=== PATIENT | female | born 1975 | race Caucasian/White ===

== ENCOUNTER 2017-05-30 14:05 | Emergency (ER) | payer BC ==
[~2017-05-30] VITALS: Ht 157.5 cm; Wt 63.6 kg
[2017-05-30 14:05] VITALS: Ht 157.5 cm; Wt 63.6 kg
[~2017-05-30 14:05] MED LIST: METO25TA54 PO
[2017-05-30 14:26] LABS: URINE BLOOD (Dip) POC 2+ (NEGATIVE)
[2017-05-30] MEDS ORDERED: ONDANSETRON (ODT) 4 MG TAB ODT STA (14:34)
[2017-05-30 14:47] LABS: BASOPHILS % 0.6 % (0.0-2.0); EOSINOPHILS # 0.1 10^3/ul (0.0-0.5); EOSINOPHILS % 1.1 % (0.0-7.0); HEMATOCRIT 34.1 % (37.0-47.0); HEMOGLOBIN 11.1 g/dl (12.0-16.0); LYMPHOCYTES # 1.3 10^3/ul (0.8-2.9); LYMPHOCYTES % 25.2 % (15.0-51.0); MEAN CORPUSCULAR HEMOGLOBIN 27.1 pg (29.0-33.0); MEAN CORPUSCULAR HGB CONC 32.6 g/dl (32.0-37.0); MEAN CORPUSCULAR VOLUME 83.4 fl (82.0-101.0); MEAN PLATELET VOLUME 11.4 fl (7.4-10.4); MONOCYTE # 0.4 10^3/ul (0.3-0.9); MONOCYTES % 6.6 % (0.0-11.0); NEUTROPHIL # 3.5 10^3/ul (1.6-7.5); NEUTROPHILS % 66.3 % (39.0-77.0); PLATELET COUNT 187 10^3/UL (140-415); RED BLOOD COUNT 4.09 10^6/ul (4.20-5.40); RED CELL DISTRIBUTION WIDTH 14.7 % (11.5-14.5); WHITE BLOOD COUNT 5.3 10^3/ul (4.8-10.8)
--- NOTE | 2017-05-30 14:52 | RADRPT ---
PROCEDURE: Abdominal Ultrasound (right upper quadrant). CLINICAL INDICATION: Abdominal pain TECHNIQUE: Multiple real-time longitudinal and transverse images of the right upper quadrant of th e abdomen were acquired utilizing a curved array transducer. Images were reviewed on a high-resoluti on PACS workstation. COMPARISON: None FINDINGS: The liver is normal in size and echogenicity. No focal masses are identified. There is no evidenc e of intra or extrahepatic ductal dilatation. The common bile duct measures 2.6 mm in diameter. No gallstones or gallbladder wall thickening is seen. The visualized portions of the pancreas are unremarkable with obscuration of the tail of the pancrea s. No free fluid is identified. There is no evidence of right hydronephrosis or renal calcification. The right kidney measures 10.5 cm in length. The visualized portions of the aorta and inferior vena cava are within normal limits. IMPRESSION: 1. Unremarkable right upper quadrant ultrasound. RPTAT: KK .Josr Roy MD, MD Date Time Electronically viewed and signed by .Josr Roy MD, MD on 05/30/2017 14:51 .B/
[2017-05-30] MEDS ORDERED: LIDOCAINE/MYLANTA 40 ML BTL PO ONE (15:00)
[2017-05-30] MEDS ORDERED: FAMOTIDINE 20 MG TAB PO ONE (15:00)
--- NOTE | 2017-05-30 15:02 | ERD ---
ER Documentation Chief Complaint Date/Time DATE: 05/30/17 TIME: 15:02 Chief Complaint SHARP ABDOMINAL PAIN HPI Is a 42-year-old female who presents the emergency department today for some abdominal pain and some nausea for the past 3-4 days. She states that she is hungry but when she eats she feels worse. States he has a history of high blood pressure but only takes her metoprolol when she has high blood pressure and is not consistent with it. Denies any fevers or chills, dysuria, diarrhea. States she does not currently have any pain. States she was told in the past she has gastric reflux ROS All systems reviewed and are negative except as per history of present illness. Medications Home Meds Active Scripts Acetaminophen* (Tylophen*) 500 Mg Capsule, 1 CAP PO Q6H Y for PAIN AND OR ELEVATED TEMP, #30 CAP Prov:RORO DACOSTA PA-C 05/30/17 Famotidine* (Pepcid*) 20 Mg Tablet, 20 MG PO BID for 14 Days, TAB Prov:RORO DACOSTA PA-C 05/30/17 Reported Medications Metoprolol Succinate (Toprol Xl) 25 Mg Tab.sr.24h, 25 MG PO DAILY 05/20/12 Allergies Allergies: Coded Allergies: No Known Allergy (Unverified , 03/16/15) PMhx/Soc Medical and Surgical Hx: pt denies Surgical Hx History of Surgery: No Anesthesia Reaction: No Hx Neurological Disorder: No Hx Respiratory Disorders: No Hx Cardiac Disorders: Yes (HTN) Hx Psychiatric Problems: No Hx Miscellaneous Medical Probl: No Hx Alcohol Use: No Hx Substance Use: No Hx Tobacco Use: No Smoking Status: Never smoker Physical Exam Vitals Vital Signs Date Time Temp Pulse Resp B/P Pulse Ox O2 Delivery O2 Flow Rate FiO2 05/30/17 14:05 98.2 80 18 137/84 99 Physical Exam Const: No acute distress Head: Atraumatic Eyes: Normal Conjunctiva ENT: Normal External Ears, Nose and Mouth. Neck: Full range of motion..~ No meningismus. Resp: Clear to auscultation bilaterally Cardio: Regular rate and rhythm, no murmurs Abd: Soft, mild epigastric tenderness. Mild right upper quadrant tenderness non distended. Normal bowel sounds. No lower abdominal pain Skin: No petechiae or rashes Back: No midline or flank tenderness Ext: No cyanosis, or edema Neur: Awake and alert Psych: Normal Mood and Affect Result Diagram: 05/30/17 1430 05/30/17 1430 Results 24 hrs Laboratory Tests Test 05/30/17 14:30 05/30/17 14:32 White Blood Count 5.310^3/ul Red Blood Count 4.0910^6/ul Hemoglobin 11.1g/dl Hematocrit 34.1% Mean Corpuscular Volume 83.4fl Mean Corpuscular Hemoglobin 27.1pg Mean Corpuscular Hemoglobin Concent 32.6g/dl Red Cell Distribution Width 14.7% Platelet Count 44230^3/UL Mean Platelet Volume 11.4fl Neutrophils % 66.3% Lymphocytes % 25.2% Monocytes % 6.6% Eosinophils % 1.1% Basophils % 0.6% Nucleated Red Blood Cells % 0.0/100WBC Neutrophils # 3.510^3/ul Lymphocytes # 1.310^3/ul Monocytes # 0.410^3/ul Eosinophils # 0.110^3/ul Basophils # 0.010^3/ul Nucleated Red Blood Cells # 0.010^3/ul Sodium Level 142mmol/L Potassium Level 4.1mmol/L Chloride Level 102mmol/L Carbon Dioxide Level 24mmol/L Anion Gap 20 Blood Urea Nitrogen 12mg/dl Creatinine 0.75mg/dl Glucose Level 87mg/dl Calcium Level 8.9mg/dl Total Bilirubin 0.3mg/dl Direct Bilirubin 0.00mg/dl Indirect Bilirubin 0.3mg/dl Aspartate Amino Transf (AST/SGOT) 16IU/L Alanine Aminotransferase (ALT/SGPT) 27IU/L Alkaline Phosphatase 43IU/L Total Protein 7.6g/dl Albumin 3.9g/dl Globulin 3.70g/dl Albumin/Globulin Ratio 1.05 Lipase 42U/L Bedside Urine pH (LAB) 5.5 Bedside Urine Protein (LAB) Negative Bedside Urine Glucose (UA) Negative Bedside Urine Ketones (LAB) Negative Bedside Urine Blood 2+ Bedside Urine Nitrite (LAB) Negative Bedside Urine Leukocyte Esterase (L Trace Current Medications Medications (Trade) Dose Ordered Sig/Sandro Route PRN Reason Start Time Stop Time Status Last Admin Dose Admin Famotidine (Pepcid) 20 mg ONCE ONCE PO 05/30/17 15:00 05/30/17 15:01 DC 05/30/17 14:50 Miscellaneous Medication (Gi Cocktail (2)) 40 ml ONCE ONCE PO 05/30/17 15:00 05/30/17 15:01 DC 05/30/17 15:06 Ondansetron HCl (Zofran Odt) 4 mg ONCE STAT ODT 05/30/17 14:34 05/30/17 14:36 DC 05/30/17 14:50 DIAGNOSTIC IMAGING REPORT Patient: ELAINA PERERA : 1975 Age: 42 Sex: F MR #: [id number] DOS: 05/30/17 0000 Ordering MD: RORO DACOSTA PA-C Location: [facility] Room/Bed: PROCEDURE: Abdominal Ultrasound (right upper quadrant). CLINICAL INDICATION: Abdominal pain TECHNIQUE: Multiple real-time longitudinal and transverse images of the right upper quadrant of the abdomen were acquired utilizing a curved array transducer. Images were reviewed on a high-resolution PACS workstation. COMPARISON: None FINDINGS: The liver is normal in size and echogenicity. No focal masses are identified. There is no evidence of intra or extrahepatic ductal dilatation. The common bile duct measures 2.6 mm in diameter. No gallstones or gallbladder wall thickening is seen. The visualized portions of the pancreas are unremarkable with obscuration of the tail of the pancreas. No free fluid is identified. There is no evidence of right hydronephrosis or renal calcification. The right kidney measures 10.5 cm in length. The visualized portions of the aorta and inferior vena cava are within normal limits. IMPRESSION: 1. Unremarkable right upper quadrant ultrasound. RPTAT: KK .Josr Roy MD, MD Date Time Electronically viewed and signed by .Josr Roy MD, MD on 2016 14:51 .B/ CC: RORO DACOSTA PA-C Procedures/[facility] This 42-year-old female who presents to the emergency department today complaining of some abdominal pain, nausea that appears to be worse with food for the past 3-4 days. 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 Patient indicated in the past she had been told that she had gastric reflux. Patient did have mild epigastric pain on palpation and therefore did obtain laboratory workup as well as imaging Laboratory workup shows no elevated white blood cell count. Her hemoglobin is mildly decreased. There is no indication for transfusion at this time. Platelets are within normal limits. Electrolytes are within normal limits. Glucose is within normal limits. Liver enzymes are within normal limits. Lipase within normal limits. UA shows trace leukocyte esterase and 2+ blood Urine test is negative Right upper quadrant ultrasound is unremarkable Discussed the patient's mildly decreased hemoglobin and patient indicated that she has been told she has had anemia in the past. Patient indicates she was hungry but whenever she ate that is when she felt discomfort. Her symptoms at this time is consistent with epigastric pain and gastritis versus gastric reflux. I explained to the patient that she may benefit from a GI specialist and endoscopy. Patient understood. Patient was given GI cocktail,, Pepcid, Zofran here in the emergency department and symptoms improved. Patient will begin a prescription for Pepcid and Tylenol for home. Discussed the patient with Dr. Rubio and he is in agreement with the plan. Departure Diagnosis: Primary Impression: Epigastric pain Condition: Fair RORO DACOSTA PA-C May 30, 2017 15:02
[2017-05-30 15:08] LABS: ALBUMIN 3.9 g/dl (3.3-4.9); ALBUMIN/GLOBULIN RATIO 1.05; BILIRUBIN,INDIRECT 0.3 mg/dl (0-1.1); BILIRUBIN,TOTAL 0.3 mg/dl (0.2-1.3); CALCIUM 8.9 mg/dl (8.4-10.2); CREATININE 0.75 mg/dl (0.44-1.00); POTASSIUM 4.1 mmol/L (3.5-5.1); TOTAL PROTEIN 7.6 g/dl (6.1-8.1)
[2017-05-30] MEDS ORDERED: ACET500C5 PO (16:26)
[2017-05-30] MEDS ORDERED: FAMO-96 PO (16:26)
[2017-05-30 16:33] VITALS: BP 118/71; PULSE 71; RESP 18; TEMP 98
== END 2017-05-30 16:35 | disposition home or self-care (01) ==
LOC: FTE 14:05
DX: R10.13 Epigastric pain (principal); I10 Essential (primary) hypertension; R11.0 Nausea
CPT/HCPCS: 76705; 80053; 81003; 83690; 85025